=== PATIENT | male | born 1950 | race Caucasian/White ===

== ENCOUNTER → 2016-07-25 | Outpatient (CLI) | payer OTHER ==
[~2016-07-25] MED LIST: VICODIN 5/500 505 MG PO
[2016-07-25 08:55] LABS: BUN 14 mg/dl (7-24); CARBON DIOXIDE 23 mmol/L (21-32); CHLORIDE 108 mmol/L (98-107); EST GLOM FILT AFRICAN AMERICAN > 60 ml/min; GLUCOSE 213 mg/dL (65-99); SODIUM 143 mmol/L (136-145)
== END | disposition home or self-care (01) ==
LOC: LAB 08:08
PROVIDERS: Internal Medicine Cardiovascular Disease
DX: Q21.3 Tetralogy of Fallot (principal)

== ENCOUNTER → 2017-01-17 | Outpatient (CLI) | payer OTHER | END | disposition home or self-care (01) | LOC: LAB 08:08 | DX: R97.20 Elevated prostate specific antigen [PSA] (principal) ==

== ENCOUNTER → 2017-03-06 | Outpatient (CLI) | payer OTHER ==
[2017-03-06 08:18] LABS: ALBUMIN 3.4 gm/dl (3.1-4.5); ALKALINE PHOSPHATASE 68 U/L (45-117); BUN 20 mg/dl (7-24); CHLORIDE 110 mmol/L (98-107); CREATININE 1.11 mg/dL (0.70-1.30); POTASSIUM 3.9 mmol/L (3.5-5.1); SGOT/AST 13 IU/L (3-35); SGPT/ALT 27 U/L (12-78); SODIUM 141 mmol/L (136-145); TOTAL PROTEIN 6.9 gm/dL (6.4-8.2)
== END | disposition home or self-care (01) ==
LOC: LAB 07:07 → US 07:30
PROVIDERS: Family Medicine
DX: Z13.6 Encounter for screening for cardiovascular disorders (principal); E11.9 Type 2 diabetes mellitus without complications; I10 Essential (primary) hypertension

== ENCOUNTER → 2019-08-18 | Outpatient (CLI) | payer MEDICARE | END | disposition home or self-care (01) | LOC: CARD | DX: I35.1 Nonrheumatic aortic (valve) insufficiency (principal); I51.0 Cardiac septal defect, acquired ==

== ENCOUNTER → 2021-07-26 | Outpatient (CLI) | payer MEDICARE | END | disposition home or self-care (01) | LOC: RESCLI 01:57 | PROVIDERS: ATTEND Internal Medicine | DX: E11.9 Type 2 diabetes mellitus without complications (principal); I10 Essential (primary) hypertension; K21.9 Gastro-esophageal reflux disease without esophagitis; E78.5 Hyperlipidemia, unspecified; G62.9 Polyneuropathy, unspecified; Z79.899 Other long term (current) drug therapy ==

== ENCOUNTER → 2022-01-16 | Outpatient (CLI) | payer MEDICARE | END | disposition home or self-care (01) | LOC: RESCLI 05:20 | PROVIDERS: ATTEND Internal Medicine | DX: E11.9 Type 2 diabetes mellitus without complications (principal); Z79.899 Other long term (current) drug therapy; Z79.01 Long term (current) use of anticoagulants; Z79.82 Long term (current) use of aspirin ==

== ENCOUNTER 2022-01-20 14:26 | Emergency (ER) | payer MEDICARE ==
[~2022-01-20] VITALS: Ht 182.8 cm; Wt 99.8 kg
[2022-01-20 14:32] VITALS: BP 183/75
== END 2022-01-20 14:50 | disposition short-term general hospital (02) ==
LOC: ED 14:26
DX: S05.11XA Contusion of eyeball and orbital tissues, right eye, initial encounter (principal); W18.39XA Other fall on same level, initial encounter; Y93.89 Activity, other specified; Y92.89 Other specified places as the place of occurrence of the external cause; Y99.8 Other external cause status

== ENCOUNTER → 2022-04-17 | Outpatient (CLI) | payer MEDICARE | END | disposition home or self-care (01) | LOC: RESCLI 07:18 | PROVIDERS: ATTEND Internal Medicine | DX: E11.9 Type 2 diabetes mellitus without complications (principal); K21.9 Gastro-esophageal reflux disease without esophagitis; I10 Essential (primary) hypertension; E78.5 Hyperlipidemia, unspecified; G62.9 Polyneuropathy, unspecified; Z98.890 Other specified postprocedural states; Z87.891 Personal history of nicotine dependence; Z79.82 Long term (current) use of aspirin; Z79.84 Long term (current) use of oral hypoglycemic drugs; Z79.899 Other long term (current) drug therapy ==

== ENCOUNTER → 2022-07-24 | Outpatient (CLI) | payer MEDICARE | END | disposition home or self-care (01) | LOC: RESCLI 14:13 | PROVIDERS: ATTEND Family Medicine | DX: E11.9 Type 2 diabetes mellitus without complications (principal); G62.9 Polyneuropathy, unspecified; E78.5 Hyperlipidemia, unspecified; K21.9 Gastro-esophageal reflux disease without esophagitis; I10 Essential (primary) hypertension; E55.9 Vitamin D deficiency, unspecified; H53.001 Unspecified amblyopia, right eye; Z98.890 Other specified postprocedural states; Z79.82 Long term (current) use of aspirin; Z79.84 Long term (current) use of oral hypoglycemic drugs; Z79.899 Other long term (current) drug therapy ==

== ENCOUNTER → 2022-10-23 | Outpatient (CLI) | payer MEDICARE | END | disposition home or self-care (01) | LOC: RESCLI 01:40 | PROVIDERS: ATTEND Student in an Organized Health Care Education/Training Program | DX: N40.0 Benign prostatic hyperplasia without lower urinary tract symptoms (principal); I10 Essential (primary) hypertension; E11.9 Type 2 diabetes mellitus without complications; E78.5 Hyperlipidemia, unspecified; G62.9 Polyneuropathy, unspecified; E55.9 Vitamin D deficiency, unspecified; H53.001 Unspecified amblyopia, right eye; K21.9 Gastro-esophageal reflux disease without esophagitis; Z00.00 Encounter for general adult medical examination without abnormal findings; Z98.890 Other specified postprocedural states; Z79.899 Other long term (current) drug therapy ==

== ENCOUNTER → 2023-08-13 | Outpatient (CLI) | payer MEDICARE | END | disposition home or self-care (01) | LOC: RESCLI 16:06 | PROVIDERS: ATTEND Student in an Organized Health Care Education/Training Program | DX: N40.0 Benign prostatic hyperplasia without lower urinary tract symptoms (principal); E11.51 Type 2 diabetes mellitus with diabetic peripheral angiopathy without gangrene; E11.40 Type 2 diabetes mellitus with diabetic neuropathy, unspecified; E78.5 Hyperlipidemia, unspecified; K21.9 Gastro-esophageal reflux disease without esophagitis; H53.001 Unspecified amblyopia, right eye; I10 Essential (primary) hypertension; E55.9 Vitamin D deficiency, unspecified; Z98.890 Other specified postprocedural states; Z82.49 Family history of ischemic heart disease and other diseases of the circulatory system; Z79.899 Other long term (current) drug therapy ==

== ENCOUNTER 2023-11-14 03:21 | Emergency (ER) | payer MEDICARE ==
[~2023-11-14] VITALS: Ht 187.9 cm; Wt 99.3 kg
[2023-11-14 04:08] LABS: BILIRUBIN 2+ (Negative); BLOOD 1+ (Negative); CLARITY Turbid (Clear); COLOR Red (Yellow); GLUCOSE Trace (Negative); LEUKO ESTERASE 3+ (Negative); NITRITE Positive (Negative); SPECIFIC GRAVITY >= 1.030 (1.001-1.030); UROBILINOGEN 0.2 E.U./dl (0.0-1.0)
[2023-11-14 04:20] LABS: BASO # 0.1 10*3/uL (0.0-0.1); BASO % 0.4 % (0.0-1.0); EOS # 0.1 10*3/uL (0.0-0.4); EOS % 0.8 % (1.0-4.0); LYMPH # 2.1 10*3/uL (1.3-4.4); LYMPH % 11.6 % (27.0-41.0); MEAN CELL VOLUME 95.5 fl (80.0-94.0); MEAN CORPUSCULAR HGB CONC 32.5 g/dl (33.0-37.0); MEAN PLATELET VOLUME 9.4 fl (9.6-12.3); MONO % 5.5 % (3.0-9.0); NEUT # 14.6 10*3/uL (2.3-7.9); PLATELET COUNT AUTOMATED 369 10*3/uL (130-400); RED BLOOD COUNT 3.35 10*6/uL (4.50-5.90); RED CELL DISTRI WIDTH 13.8 % (0-14.5)
[2023-11-14 04:24] LABS: KETONE Negative (Negative)
[2023-11-14 04:25] LABS: RBC TNTC rbc/hpf (0-2)
[2023-11-14] MEDS ORDERED: ATORVASTATIN CA10 M1 PO (04:43)
[2023-11-14] MEDS ORDERED: AMLODIPINE BESY10 MG PO (04:44)
[2023-11-14] MEDS ORDERED: COREG25 MG PO (04:44)
[2023-11-14] MEDS ORDERED: ASPIRIN ADULT L81 M1 PO (04:45)
[2023-11-14] MEDS ORDERED: CENTRUM SILVER1 EACH PO (04:45)
[2023-11-14] MEDS ORDERED: LASIX20 MG PO (04:46)
[2023-11-14] MEDS ORDERED: GLIPIZIDE10 M2 PO (04:47)
[2023-11-14] MEDS ORDERED: FISH OIL CONC1000 M2 PO (04:47)
[2023-11-14] MEDS ORDERED: LANTUS SOL100 UNIT/1 SC (04:48)
[2023-11-14] MEDS ORDERED: METFORMIN HYD1000 MG PO (04:49)
[2023-11-14] MEDS ORDERED: POTASSIUM CHLO10 MEQ PO (04:50)
[2023-11-14] MEDS ORDERED: LYRICA25 M1 PO (04:52)
[2023-11-14] MEDS ORDERED: VALSARTAN-HCTZ1 EAC4 PO (05:01)
[2023-11-14] MEDS ORDERED: VICTOZA 3-0.6 MG/0.1 SQ (05:05)
[2023-11-14] MEDS ORDERED: VITAMIN D250 MCG PO (05:08)
[2023-11-14 05:16] LABS: BUN 20 mg/dl (9-23); CHLORIDE 104 mmol/L (98-107); POTASSIUM 4.8 mmol/L (3.4-5.1)
[2023-11-14] MEDS ORDERED: Ceftriaxone Sodium 1 GM/10 ML SYR IV ONE (05:30)
[2023-11-14] MEDS ORDERED: SODIUM CHLORIDE 0.9% 1,000 ML IV SCH (05:30)
[2023-11-14] MEDS ORDERED: MORPHINE Sulfate 2 MG/ML SYR IV ONE ×2 (09:10→13:15)
[2023-11-14 13:44] VITALS: BP 122/59
== END 2023-11-14 15:00 | disposition short-term general hospital (02) ==
LOC: ED 03:21
PROVIDERS: Emergency Medicine
DX: A41.9 Sepsis, unspecified organism (principal); N39.0 Urinary tract infection, site not specified; R33.9 Retention of urine, unspecified; I10 Essential (primary) hypertension; E11.9 Type 2 diabetes mellitus without complications; Z79.899 Other long term (current) drug therapy; Z79.82 Long term (current) use of aspirin; Z79.4 Long term (current) use of insulin

== ENCOUNTER → 2023-11-30 | Outpatient (CLI) | payer MEDICARE ==
[~2023-11-30] MED LIST changes: +AMLODIPINE BESY10 MG PO; +ASPIRIN ADULT L81 M1 PO; +ATORVASTATIN CA10 M1 PO; +CENTRUM SILVER1 EACH PO; +COREG25 MG PO; +FISH OIL CONC1000 M2 PO; +GLIPIZIDE10 M2 PO; +LANTUS SOL100 UNIT/1 SC; +LASIX20 MG PO; +LYRICA25 M1 PO; +METFORMIN HYD1000 MG PO; +POTASSIUM CHLO10 MEQ PO; +VALSARTAN-HCTZ1 EAC4 PO; +VICTOZA 3-0.6 MG/0.1 SQ; +VITAMIN D250 MCG PO
[2023-11-30 14:11] LABS: BILIRUBIN Negative (Negative); BLOOD 2+ (Negative); CLARITY Clear (Clear); COLOR Yellow (Yellow); GLUCOSE Negative (Negative); KETONE Negative (Negative); LEUKO ESTERASE 2+ (Negative); NITRITE Negative (Negative); PH 5.5 (4.5-8.0); SPECIFIC GRAVITY 1.015 (1.001-1.030); UROBILINOGEN 0.2 E.U./dl (0.0-1.0)
[2023-11-30 14:26] LABS: BACTERIA 1+; RBC 16-20 rbc/hpf (0-2); WBC 31-40 wbc/hpf (0-5)
== END | disposition home or self-care (01) ==
LOC: LAB 13:21
PROVIDERS: ATTEND Family Medicine
DX: R53.1 Weakness (principal); R53.83 Other fatigue

== ENCOUNTER → 2024-02-25 | Outpatient (CLI) | payer MEDICARE ==
[2024-02-25 16:01] LABS: BILIRUBIN Negative (Negative); BLOOD 2+ (Negative); CLARITY Cloudy (Clear); COLOR Yellow (Yellow); GLUCOSE Negative (Negative); KETONE Negative (Negative); LEUKO ESTERASE 2+ (Negative); NITRITE Negative (Negative); UROBILINOGEN 0.2 E.U./dl (0.0-1.0)
[2024-02-25 16:09] LABS: BACTERIA 1+; MUCOUS 1+; RBC 21-30 rbc/hpf (0-2); WBC 41-50 wbc/hpf (0-5)
== END | disposition home or self-care (01) ==
LOC: LAB 00:08
PROVIDERS: ATTEND Urology
DX: N39.0 Urinary tract infection, site not specified (principal)

== ENCOUNTER → 2024-08-19 | Outpatient (CLI) | payer MEDICARE | END | disposition home or self-care (01) | LOC: RESCLI 02:50 | PROVIDERS: ATTEND Family Medicine | DX: I10 Essential (primary) hypertension (principal); G62.9 Polyneuropathy, unspecified; E78.5 Hyperlipidemia, unspecified; E11.9 Type 2 diabetes mellitus without complications; K21.9 Gastro-esophageal reflux disease without esophagitis; E55.9 Vitamin D deficiency, unspecified; H53.001 Unspecified amblyopia, right eye; N40.0 Benign prostatic hyperplasia without lower urinary tract symptoms; I73.9 Peripheral vascular disease, unspecified; N32.81 Overactive bladder; Z79.899 Other long term (current) drug therapy; Z98.890 Other specified postprocedural states ==